=== PATIENT | male | born 1965 ===

== ENCOUNTER 2017-10-10 13:42 | Emergency (ER) | payer OTHER ==
[2017-10-10 14:25] VITALS: BMI 27.3
[2017-10-10 14:30] VITALS: TEMP 98
[2017-10-10] MEDS ORDERED: Dexamethasone 4 mg/1 ml IM STA (15:57)
[2017-10-10] MEDS ORDERED: DiphenhydrAMINE 50 mg/ml Inj IM STA (15:58)
[2017-10-10] MEDS ORDERED: DiphenhydrAMINE 50 mg/ml Inj ONE (16:04)
--- NOTE | 2017-10-10 16:40 | RAD ---
PROCEDURE: Radiographs of the neck (soft tissue). HISTORY: fb sensation after eating COMPARISON: None. TECHNIQUE: Frontal and Lateral Radiographs of the neck, optimized for soft tissue visualization. FINDINGS: SOFT TISSUES: Unremarkable. No radiopaque foreign body seen. CERVICAL SPINE: Minimal C5-6 spondylosis with intervening disc space narrowing OTHER FINDINGS: None. IMPRESSION: Minimal C5-6 senescent changes . No radiopaque foreign body noted. No fracture or lytic lesion
[2017-10-10 16:44] VITALS: BP 129/81; PULSE 68; RESP 17; O2SAT 99
--- NOTE | 2017-10-10 16:49 | C.PDOC ---
History Of Present Illness 52 y/o male presents to the ER for evaluation after he was eating vegetable lasagna at a cafeteria and felt something was stuck in his throat during noon today. Patient states that he could not swallow and he "spit out everything." He felt he could not talk. Patient reports that he was able to drink coffee and and felt some relief.Patient reports that his voice is hoarse and he has intermittent pressure in his throat. Time Seen by Provider: 10/10/17 15:09 Chief Complaint (Nursing): ENT Problem History Per: Patient History/Exam Limitations: None Onset/Duration Of Symptoms: Hrs Current Symptoms Are (Timing): Still Present Severity: Moderate Past Medical History Reviewed: Historical Data, Nursing Documentation, Vital Signs Vital Signs: Last Vital Signs Temp 98 F 10/10/17 14:25 Pulse 68 10/10/17 16:43 Resp 17 10/10/17 16:43 BP 129/81 10/10/17 16:43 Pulse Ox 99 10/10/17 18:05 - Medical History PMH: HTN, Hypercholesterolemia Other Surgeries: Hx of surgeries Family History: States: No Known Family Hx - Social History Hx Alcohol Use: No Hx Substance Use: No - Immunization History Hx Tetanus Toxoid Vaccination: No Hx Influenza Vaccination: No Hx Pneumococcal Vaccination: No Review Of Systems Except As Marked, All Systems Reviewed And Found Negative. Constitutional: Negative for: Fever, Chills ENT: Positive for: Throat Pain Gastrointestinal: Negative for: Nausea, Vomiting, Diarrhea Physical Exam - Physical Exam Appears: Non-toxic, No Acute Distress, Other (talking ) Skin: Normal Color Head: Atraumatic, Normacephalic Eye(s): bilateral: Normal Inspection Nose: Normal Oral Mucosa: Moist Throat: Normal, No Erythema, No Exudate, No Drooling, No Mass, Other (no stridor , normal voice, airway is open) Neck: Supple Chest: Symmetrical Cardiovascular: Rhythm Regular Respiratory: Normal Breath Sounds, No Accessory Muscle Use, No Rales, No Rhonchi , No Stridor, No Wheezing Extremity: Normal ROM Neurological/Psych: Oriented x3, Normal Speech, Normal Motor, Normal Sensation ED Course And Treatment O2 Sat by Pulse Oximetry: 99 (RA) Pulse Ox Interpretation: Normal - Other Rad Soft tissue neck X-Ray: Viewed By Me, Read By Radiologist Interpretation: Accession No. : [id number]. Patient Name / ID : WINIFRED ISLAS / [id number]. Exam Date : 10/10/2017 15:23:06 ( Approved ). Study Comment : Sex / Age : M / 52Y. Creator : Swapna Cuadra. Dictator : Swapna Cuadra. Case Management Specialist : Railroad Mechanic : Swapna Bradley. Approver2 : Report Date : 10/10/2017 16:38:15. My Comment : . PROCEDURE: Radiographs of the neck (soft tissue). HISTORY: fb sensation after eating. COMPARISON: None. TECHNIQUE: Frontal and Lateral Radiographs of the neck, optimized for soft tissue visualization. FINDINGS: SOFT TISSUES: Unremarkable. No radiopaque foreign body seen. CERVICAL SPINE: Minimal C5-6 spondylosis with intervening disc space narrowing. OTHER FINDINGS : None. IMPRESSION: Minimal C5-6 senescent changes. . No radiopaque foreign body noted. No fracture or lytic lesion Progress Note: Patient given Decadron IM, Benadryl IM and Pepcid PO. X-Ray- Neck Soft Tissue was found to be negative. On re-evaluation, patient feels better. Patient is able to talk and walk with a steady gait. Patient has been discharged home. Disposition - Disposition Referrals: Jorge Alberto James MD [Staff Provider] - Disposition: HOME/ ROUTINE Disposition Time: 16:46 Condition: STABLE Additional Instructions: Follow up with PMD and ENT within 2-3 days. Return to ED if feel worse. Prescriptions: DiphenhydrAMINE [Benadryl] 25 mg PO .Q4-6 H #30 cap Epinephrine [Epipen] 0.3 mg IJ ONCE #2 auto.injct Famotidine [Pepcid] 20 mg PO BID #20 tab Instructions: Dysphagia Forms: [employer] (Yi) - Clinical Impression Clinical Impression: Dysphagia - PA / [employer] MEDIA PROGRAM DIRECTOR / Resident Statement MD/DO has reviewed & agrees with the documentation as recorded. - Scribe Statement The provider has reviewed the documentation as recorded by the Alyciaibe Adali Murillo Provider Attestation All medical record entries made by the Alyciaibe were at my direction and personally dictated by me. I have reviewed the chart and agree that the record accurately reflects my personal performance of the history, physical exam, medical decision making, and the department course for this patient. I have also personally directed, reviewed, and agree with the discharge instructions and disposition.
== END 2017-10-10 16:55 | disposition home or self-care (01) ==
LOC: C.ER 13:42
DX: R13.10 Dysphagia, unspecified (principal)
CPT/HCPCS: 70360; 96372; 99283; J1100; J1200